=== PATIENT | female | born 1980 | race Caucasian/White ===

== ENCOUNTER 2023-04-18 17:02 | Emergency (ER) | payer OTHER ==
[2023-04-18] MEDS ORDERED: Ipratropium/Albuterol 3 ML NEB ONE (17:47)
[2023-04-18] MEDS ORDERED: methylPREDNISolone Sod Succ/PF 125 MG/2 ML VIAL ONE (17:47)
== END 2023-04-18 18:39 | disposition home or self-care (01) ==
LOC: MADERS 17:02
DX: R06.2 Wheezing (principal); R05.9 Cough, unspecified; F17.210 Nicotine dependence, cigarettes, uncomplicated
CPT/HCPCS: 71045; 93005; 96372; J2930; J7620

== ENCOUNTER 2025-01-29 12:10 | Emergency (ER) | payer OTHER ==
[2025-01-29] MEDS ORDERED: Ibuprofen 800 MG TAB ONE (12:55)
== END 2025-01-29 13:39 | disposition home or self-care (01) ==
LOC: MADERS 12:10
DX: S61.210A Laceration without foreign body of right index finger without damage to nail, initial encounter (principal); S61.212A Laceration without foreign body of right middle finger without damage to nail, initial encounter; S61.011A Laceration without foreign body of right thumb without damage to nail, initial encounter; F17.210 Nicotine dependence, cigarettes, uncomplicated; W26.8XXA Contact with other sharp object(s), not elsewhere classified, initial encounter
CPT/HCPCS: 12002; 99283; Q0162